=== PATIENT | male | born 1980 | race Caucasian/White ===

== ENCOUNTER 2019-05-05 16:21 | Emergency (ER) | payer OTHER ==
[~2019-05-05] VITALS: Ht 167.6 cm; Wt 68.2 kg
--- NOTE | 2019-05-05 17:28 | REP ---
Clinical: Trauma . Comparison: None . Findings: The ventricles, sulci, and cisterns are normal in position and appearance. Kahn-white differentiation is maintained. No acute intracranial hemorrhage, mass/mass effect, pathology or trauma/injury. No evidence for acute infarction. No extra-axial fluid collection. Calvarium is intact. Paranasal sinuses and mastoid air cells are clear. Impression: Normal noncontrast head CT. No evidence for acute intracranial pathology or trauma/injury. Electronically Signed by Dante Uamna MD 05/05/2019 05:19 P
--- NOTE | 2019-05-05 17:31 | REP ---
Clinical: Trauma. Technique: Axial noncontrast images through the facial bones to include the mandible with coronal and sagittal re-formations. Findings: Very subtle bilateral nasal bone fractures of indeterminate age are appreciated and should be correlated clinically. The osseous structures are otherwise intact and there is no further evidence for fracture or dislocation. Specifically, the bilateral zygomatic arches, mandible including bilateral temporomandibular joints appear normal and symmetric. The sinuses and mastoid air cells are all well aerated and clear without fluid level to suggest occult trauma. The bilateral orbits including the globes and intraconal contents appear symmetric and normal. The surrounding soft tissues are grossly unremarkable. Impression: 1. Subtle bilateral nasal bone fractures of indeterminate age are appreciated and require clinical correlation these findings may represent acute and/or old fractures. 2. No further acute pathology or trauma/injury appreciated Electronically Signed by Dante Umana MD 05/05/2019 05:22 P
--- NOTE | 2019-05-05 17:32 | REP ---
Clinical: Trauma . Technique: Axial noncontrast images from the skull base to the thoracic inlet with coronal and sagittal re-formations Findings: Straightening of normal lordosis may be secondary to positioning versus pain/spasm. Normal alignment is maintained. Cervical vertebral bodies including transverse processes and spinous processes are intact and there is no evidence for acute fracture / compression injury or subluxation. Spinal canal is patent. Posterior elements are intact. Paravertebral soft tissues are normal. Impression: Straightening of normal lordosis is nonspecific. No evidence for acute pathology or trauma/injury. Electronically Signed by Dante Umana MD 05/05/2019 05:23 P
[2019-05-05 17:56] VITALS: BP 133/69
== END 2019-05-05 17:57 | disposition home or self-care (01) ==
LOC: EEVIPCON 16:21 → M ED 16:21
DX: S00.83XA Contusion of other part of head, initial encounter (principal); Y04.8XXA Assault by other bodily force, initial encounter; Y92.148 Other place in prison as the place of occurrence of the external cause; B19.20 Unspecified viral hepatitis C without hepatic coma; F17.200 Nicotine dependence, unspecified, uncomplicated; F19.10 Other psychoactive substance abuse, uncomplicated; Z87.81 Personal history of (healed) traumatic fracture